=== PATIENT | male | born 1940 | race Caucasian/White ===

== ENCOUNTER → 2017-11-10 | Outpatient (CLI) | payer MEDICARE ==
[~2017-11-10] MED LIST: AEC81 PO; COLCHICINE PO; FENO160T16 PO; INS7030 SQ; INVOK100TB PO; METF500T6 PO; METO-391 PO; OMEP20CA10 PO; VIT1TABL69 PO; VIT1TABL81 PO
== END ==
LOC: SLP 20:30
PROVIDERS: ATTEND Internal Medicine Cardiovascular Disease
DX: G47.30 Sleep apnea, unspecified (principal); I10 Essential (primary) hypertension
CPT/HCPCS: 95811